=== PATIENT | female | born 1970 | race Hispanic/Latino ===

== ENCOUNTER 2025-02-08 11:15 | Emergency (ER) | payer SELFPAY ==
[~2025-02-08] VITALS: Ht 152.4 cm; Wt 61.7 kg
[2025-02-08 11:43] LABS: BASOPHILS # (AUTO) 0.08 K/uL (0.00-0.20); BASOPHILS % (AUTO) 0.6 % (0.0-5.0); EOSINOPHILS % (AUTO) 0.8 % (0.0-8.0); HEMATOCRIT 44.3 % (36-48); IMMATURE GRANULOCYTE ABSOLUTE 0.19 K/uL (0-1); LYMPHOCYTES # (AUTO) 2.4 K/uL (1.0-4.8); LYMPHOCYTES % (AUTO) 18.8 % (21.0-51.0); MEAN CORPUSCULAR HEMOGLOBIN 29.6 pg (27.0-33.0); MEAN CORPUSCULAR HGB CONC 32.3 g/dL (32.0-36.0); MEAN CORPUSCULAR VOLUME 91.7 fL (79-99); MONOCYTES # (AUTO) 0.4 K/uL (0.1-1.0); MONOCYTES % (AUTO) 3.3 % (3.0-13.0); NEUTROPHILS # (AUTO) 9.6 K/uL (1.8-7.7); PLATELET COUNT (AUTO) 234 K/uL (130-400); RED BLOOD CELL COUNT(AUTO) 4.83 MIL/uL (4.00-5.50); RED CELL DISTRIBUTION WIDTH 13.6 % (11.0-15.5); WHITE BLOOD COUNT (AUTO) 12.8 K/uL (4.8-10.8)
[2025-02-08 11:54] LABS: CREATININE 0.7 mg/dL (0.5-1.0); POTASSIUM 4.2 mmol/L (3.5-5.1)
[2025-02-08] MEDS ORDERED: IOHEXOL 350 MG/ML 100ML INFUS..BTL IV ONE (12:10)
--- NOTE | 2025-02-08 12:16 | HMCIMG ---
ANKLE COMP 3VWS RT HISTORY: Status post fall COMPARISON: None TECHNIQUE: 3 images of the right ankle were obtained. FINDINGS: There is no acute displaced fracture or dislocation. Degenerative changes are seen. IMPRESSION: 1. Findings as described above.
--- NOTE | 2025-02-08 12:17 | HMCIMG ---
FOREARM 2VWS RT HISTORY: Status post fall COMPARISON: None TECHNIQUE: 2 images of the right forearm are obtained. FINDINGS: There is no acute displaced fracture or dislocation. Degenerative changes are seen. IMPRESSION: 1. Findings as described above.
[2025-02-08] MEDS ORDERED: traMADol HCL 50 MG TABLET PO ONE (12:30)
--- NOTE | 2025-02-08 12:33 | HMCIMG ---
HUMERUS 2+VWS RT HISTORY: Status post fall COMPARISON: None TECHNIQUE: 2 images of the right humerus were obtained. FINDINGS: There is no acute displaced fracture or dislocation. Degenerative changes are seen. IMPRESSION: 1. Findings as described above.
--- NOTE | 2025-02-08 12:41 | HMCIMG ---
CT CHEST/ABD/PELV W/CONRAST HISTORY: Status post fall COMPARISON: None TECHNIQUE: Multiple sequential axial images of the chest were obtained from the thoracic inlet through upper abdomen. Patient was not given contrast through intravenous route. FINDINGS: There are right posterior lateral rib fractures involving eighth through 12th ribs. Small right pleural effusion is seen consistent with hemothorax. There is subtle hypodensity noted in the right hepatic lobe adjacent to the fracture site with surrounding increased enhancement suggestive of grade 1 liver laceration. There is no evidence of pulmonary nodule or parenchymal disease. No pleural effusion or pericardial effusion is seen. There is no evidence of pneumothorax. There are normal size mediastinal and hilar lymph nodes. The heart is not enlarged. Degenerative changes of the thoracolumbar spine are present. There is no evidence of adrenal nodule. IMPRESSION: 1. There are right posterior lateral rib fractures involving eighth through 12th ribs. Small right pleural effusion is seen consistent with hemothorax. There is subtle hypodensity noted in the right hepatic lobe adjacent to the fracture site with surrounding increased enhancement suggestive of grade [address] CHEST/ABD/PELV W/CONRAST HISTORY: No additional history given. COMPARISON: None TECHNIQUE: Multiple sequential axial images of the abdomen and pelvis were obtained from the dome of the diaphragm through symphysis pubis. Patient was not given contrast through intravenous route. Oral contrast was not given. FINDINGS: There are right posterior lateral rib fractures involving eighth through 12th ribs. Small right pleural effusion is seen consistent with hemothorax. There is subtle hypodensity noted in the right hepatic lobe adjacent to the fracture site with surrounding increased enhancement suggestive of grade 1 liver laceration. Adjacent soft tissue swelling and soft tissue emphysema There are right L3 and L4 transverse processes are fractured with mild adjacent soft tissue swelling. There is cystic mass in the right adnexa measuring 6 x 5.8 cm may be related to ovarian cyst versus cystic neoplasm not excluded. Spleen, adrenal glands and pancreas are unremarkable. There is no evidence of hydronephrosis bilaterally. No evidence of renal stone is seen. Fecal material is seen in the colon. There are normal size retroperitoneal and mesenteric lymph nodes. No ascites is seen. Atherosclerotic changes are present. Pelvic sidewalls are symmetric bilaterally. Bladder is well distended without wall thickening. IMPRESSION: 1. There are right posterior lateral rib fractures involving eighth through 12th ribs. Small right pleural effusion is seen consistent with hemothorax. There is subtle hypodensity noted in the right hepatic lobe adjacent to the fracture site with surrounding increased enhancement suggestive of grade 1 liver laceration. Adjacent soft tissue swelling and soft tissue emphysema There are right L3 and L4 transverse processes are fractured with mild adjacent soft tissue swelling. There is cystic mass in the right adnexa measuring 6 x 5.8 cm may be related to ovarian cyst versus cystic neoplasm not excluded. Report was given to the emergency physician. CT was performed with one or more following dose reduction techniques: automated exposure control, adjustment of the mA and kv according to patient's size, or use of a iterative reconstruction technique.
[2025-02-08] MEDS: ondanSETRON 4MG INJ IVP ONE (12:44)
[2025-02-08] MEDS: morPHINE 4 MG SYG IVP ONE (12:44)
--- NOTE | 2025-02-08 12:48 | NUR ---
REFER TO TRAUMA FLOW SHEET. KIMBERLY CHANGED TO KIMBERLY 2 AND TRAUMA LEVEL 1
--- NOTE | 2025-02-08 13:00 | NUR ---
RE[place] G[place] [facility] [place] EMS LEAVING TO [facility]
--- NOTE | 2025-02-08 13:05 | NUR ---
[facility] EMS TRANSFER SPIKE FROM [facility] CALLED FOR EMERGENT [place] [facility] [place] LEVEL 1. INFORMATION PROVIDED.
[2025-02-08] MEDS: hydroMORPHone 0.5 MG SYG (0.5MG/0.5ML) IVP ONE (13:09)
[2025-02-08] MEDS: hydroMORPHone 0.5 MG SYG (0.5MG/0.5ML) ONE (13:10)
--- NOTE | 2025-02-08 13:15 | ERN ---
General Chief Complaint: Mechanical Fall Stated Complaint: FALL Time Seen by MD: 11:17 Source: patient, family History of Present Illness Initial Comments Patient is a 55-year-old female coming in after she fell off a ladder. Per patient she was complaining of pain in multiple regions of her body. She states that she has pain in her right chest right abdominal region as well as right ankle right elbow and right shoulder region. Patient does quantifies the height at greater than 5 ft. No loss of consciousness. Allergies: Coded Allergies: No Known Allergies (Unverified Allergy, Unknown, 02/08/25) Past Medical History Past Medical History: No Pertinent History Past Surgical History: Other ROS Dictation CONSTITUTIONAL: No chills, no fever, no weakness, no diaphoresis, no malaise. HEAD/FACE: No signs of trauma. EENT: No eye pain, no blurred vision, no tearing, no double vision, no ear pain, no ear discharge, no nose pain, no nasal congestion, no throat pain, no throat swelling, no mouth pain. RESPIRATORY: No cough, no orthopnea, no SOB, no stridor, no wheezing. CARDIOVASCULAR: No chest pain, no edema, no palpitations, no syncope. GASTROINTESTINAL/ABDOMINAL: No abdominal pain, no constipation, no diarrhea, no nausea, no vomiting. GENITOURINARY: No abnormal discharge, no dysuria, no frequent urination, no hematuria. No complaints of pain in the genitals. MUSCULOSKELETAL: back pain, no gout, joint pain, joint swelling, muscle pain, no muscle stiffness, no neck pain. INTEGUMENTARY: No change in color, no change in hair/nails, no dryness, no lesion, no lumps, no rash. NEUROLOGICAL/PSYCH: No anxiety, not depressed, no emotional problem, no headache, no numbness, no pre-existing deficit, no history of seizures, no tremors, no weakness. HEMATOLOGIC/LYMPHATIC: Not anemic, no history of blood clots, no apparent bleeding, no bruising, glands not swollen. All Systems Negative, Except as Noted. Physical Exam Physical Exam Dictation VITAL SIGNS: Reviewed. GENERAL APPEARANCE: Alert, oriented x3, no acute distress, obese. HEAD AND FACE: Non-traumatic. EYES: PERRL, pink conjunctivas, eyelid no trauma, anterior chamber clear. EARS: Pinnas intact and no signs of trauma or erythema. Ear canals clear and no discharge. TMs no erythema. NOSE: No discharge, no bleeding. OROPHARYNX: Mouth normal, teeth no caries, tongue pink. Pharynx clear, no erythema. Tonsils no exudates, no abscesses noted. Mucous membrane moist. NECK: Supple, non-tender, no thyromegaly, no masses, no JVD, no bruits. BREAST: Deferred. CHEST: Right posterior chest pain on palpation tenderness, no crepitus, no paradoxical movement, no retractions. LUNGS: Clear, well-ventilated, symmetric, no rales, no wheezing, no rhonchi, no stridor, good breath sounds bilaterally. HEART: Regular rate, regular rhythm, no murmur, no gallops. VASCULAR: No peripheral edema. ABDOMEN: Soft, positive bowel sounds, nondistended, no guarding, nontender, no rebound, no masses no hepatomegaly, no splenomegaly, no Viera's sign, no her nias. RECTAL: Deferred. GENITAL: Deferred. NEUROLOGICAL: Normal speech, gross motor function intact, gross sensory function intact. MUSCULOSKELETAL: Neck nontender, full range of motion, back nontender, full range of motion. EXTREMITIES: Nontender, full range of motion. Right ankle pain swelling tenderness to palpation, right forearm right shoulder pain as well tenderness to palpation flexion and extension, SKIN: Color pink, dry, no turgor, no rash, no lacerations, no abrasions, no contusions. LYMPHATICS: Deferred. Results Laboratory and Microbiology Lab and Micro Result Laboratory Tests Test 02/08/25 11:34 White Blood Count 12.8 K/uL (4.8-10.8) H Red Blood Count 4.83 MIL/uL (4.00-5.50) Hemoglobin 14.3 g/dL (12.0-16.0) Hematocrit 44.3 % (36-48) Mean Corpuscular Volume 91.7 fL (79-99) Mean Corpuscular Hemoglobin 29.6 pg (27.0-33.0) Mean Corpuscular Hemoglobin Concent 32.3 g/dL (32.0-36.0) Red Cell Distribution Width 13.6 % (11.0-15.5) Platelet Count 234 K/uL (130-400) Mean Platelet Volume 10.5 fL (7.5-10.5) Immature Granulocyte % (Auto) 1.5 % (0-1) H Neutrophils (%) (Auto) 75.0 % (40.0-77.0) Lymphocytes (%) (Auto) 18.8 % (21.0-51.0) L Monocytes (%) (Auto) 3.3 % (3.0-13.0) Eosinophils (%) (Auto) 0.8 % (0.0-8.0) Basophils (%) (Auto) 0.6 % (0.0-5.0) Neutrophils # (Auto) 9.6 K/uL (1.8-7.7) H Lymphocytes # (Auto) 2.4 K/uL (1.0-4.8) Monocytes # (Auto) 0.4 K/uL (0.1-1.0) Eosinophils # (Auto) 0.10 K/uL (0.00-0.70) Basophils # (Auto) 0.08 K/uL (0.00-0.20) Absolute Immature Granulocyte (auto 0.19 K/uL (0-1) Nucleated Red Blood Cells 0.0 % (0.0-0.19) Sodium Level 146 mmol/L (136-145) H Potassium Level 4.2 mmol/L (3.5-5.1) Chloride Level 106 mmol/L (101-111) Carbon Dioxide Level 33 mmol/L (21-32) H Blood Urea Nitrogen 26 mg/dL (7-18) H Creatinine 0.7 mg/dL (0.5-1.0) Glomerular Filtration Rate Calc 102 mL/min (>90) Random Glucose 141 mg/dL (70-105) H Total Calcium 9.3 mg/dL (8.5-10.1) Troponin I High Sensitivity < 4 ng/L (4-50) L Serum Test, Qualitative NEGATIVE (NEGATIVE) Labs Reviewed?: Yes EKG/XRAY/US/CT/MRI EKG Comment 02/08/2025 time 12:51 p.m. Ventricular rate 79 Sinus rhythm [place] [address] wave elevation or depression X-RAY Comment [place] [address] [place] [id number] IMAGING REPORT Signed PATIENT: GRETA FULLER MR#: [id number] : 1970 SEX: F AGE: 55 LOCATION: [facility] ORDER 1130 STATUS: REG ER REPORT#: [id number] SERVICE 112 REASON: fall ORDERING PHYSICIAN: DILAN BURNETTE MD PROCEDURE: HUM 2V RT - HUMERUS 2+VWS RT HUMERUS 2+VWS RT HISTORY: Status post fall COMPARISON: None TECHNIQUE: 2 images of the right humerus were obtained. FINDINGS: There is no acute displaced fracture or dislocation. Degenerative changes are seen. IMPRESSION: 1. Findings as described above. DICTATED BY: ARBEN BLANDON MD DATE: 02/08/25 1225 ELECTRONICALLY SIGNED BY: ARBEN BLANDON MD DATE: 02/08/25 1233 [place] [address] [address] [id number] IMAGING REPORT Signed PATIENT: GRETA FULLER MR#: [id number] : 1970 SEX: F AGE: 55 LOCATION: [facility] ORDER 1130 STATUS: REG ER REPORT#: [id number] SERVICE 1129 REASON: fall ORDERING PHYSICIAN: DILAN BURNETTE MD PROCEDURE: FORARMR - FOREARM 2VWS RT FOREARM 2VWS RT HISTORY: Status post fall COMPARISON: None TECHNIQUE: 2 images of the right forearm are obtained. FINDINGS: There is no acute displaced fracture or dislocation. Degenerative changes are seen. IMPRESSION: 1. Findings as described above. DICTATED BY: ARBEN BLANDON MD DATE: 02/08/25 1213 ELECTRONICALLY SIGNED BY: ARBEN BLANDON MD DATE: 02/08/25 1217 [facility] [id number] IMAGING REPORT Signed PATIENT: GRETA FULLER MR#: [id number] : 1970 SEX: F AGE: 55 LOCATION: [facility] ORDER 1130 STATUS: REG ER HOSPITAL REPORT#: [id number] SERVICE REASON: fall ORDERING PHYSICIAN: DILAN BURNETTE MD PROCEDURE: [id number] - ANKLE COMP 3VWS RT ANKLE COMP 3VWS RT HISTORY: Status post fall COMPARISON: None TECHNIQUE: 3 images of the right ankle were obtained. FINDINGS: There is no acute displaced fracture or dislocation. Degenerative changes are seen. IMPRESSION: 1. Findings as described above. DICTATED BY: ARBEN BLANDON MD DATE: 02/08/251211 ELECTRONICALLY SIGNED BY: ARBEN BLANDON MD DATE: 02/08/251215 CT Scan Comment [address] [id number] IMAGING REPORT Signed PATIENT: GRETA FULLER MR#: [id number] : 1970 SEX: F AGE: 55 LOCATION: [facility] ORDER 1130 STATUS: REG ER REPORT#: [id number] SERVICE 112 REASON: fall ORDERING PHYSICIAN: DILAN BURNETTE MD PROCEDURE: CAP W - CT CHEST/ABD/PELV W/CONRAST CT CHEST/ABD/PELV W/CONRAST HISTORY: Status post fall COMPARISON: None TECHNIQUE: Multiple sequential axial images of the chest were obtained from the thoracic inlet through upper abdomen. Patient was not given contrast through intravenous route. FINDINGS: There are right posterior lateral rib fractures involving eighth through 12th ribs. Small right pleural effusion is seen consistent with hemothorax. There is subtle hypodensity noted in the right hepatic lobe adjacent to the fracture site with surrounding increased enhancement suggestive of grade 1 liver laceration. There is no evidence of pulmonary nodule or parenchymal disease. No pleural effusion or pericardial effusion is seen. There is no evidence of pneumothorax. There are normal size mediastinal and hilar lymph nodes. The heart is not enlarged. Degenerative changes of the thoracolumbar spine are present. There is no evidence of adrenal nodule. IMPRESSION: 1. There are right posterior lateral rib fractures involving eighth through 12th ribs. Small right pleural effusion is seen consistent with hemothorax. There is subtle hypodensity noted in the right hepatic lobe adjacent to the fracture site with surrounding increased enhancement suggestive of grade [address] CHEST/ABD/PELV W/CONRAST HISTORY: No additional history given. COMPARISON: None TECHNIQUE: Multiple sequential axial images of the abdomen and pelvis were obtained from the dome of the diaphragm through symphysis pubis. Patient was not given contrast through intravenous route. Oral contrast was not given. FINDINGS: There are right posterior lateral rib fractures involving eighth through 12th ribs. Small right pleural effusion is seen consistent with hemothorax. There is subtle hypodensity noted in the right hepatic lobe adjacent to the fracture site with surrounding increased enhancement suggestive of grade 1 liver laceration. Adjacent soft tissue swelling and soft tissue emphysema There are right L3 and L4 transverse processes are fractured with mild adjacent soft tissue swelling. There is cystic mass in the right adnexa measuring 6 x 5.8 cm may be related to ovarian cyst versus cystic neoplasm not excluded. Spleen, adrenal glands and pancreas are unremarkable. There is no evidence of hydronephrosis bilaterally. No evidence of renal stone is seen. Fecal material is seen in the colon. There are normal size retroperitoneal and mesenteric lymph nodes. No ascites is seen. Atherosclerotic changes are present. Pelvic sidewalls are symmetric bilaterally. Bladder is well distended without wall thickening. IMPRESSION: 1. There are right posterior lateral rib fractures involving eighth through 12th ribs. Small right pleural effusion is seen consistent with hemothorax. There is subtle hypodensity noted in the right hepatic lobe adjacent to the fracture site with surrounding increased enhancement suggestive of grade 1 liver laceration. Adjacent soft tissue swelling and soft tissue emphysema There are right L3 and L4 transverse processes are fractured with mild adjacent soft tissue swelling. There is cystic mass in the right adnexa measuring 6 x 5.8 cm may be related to ovarian cyst versus cystic neoplasm not excluded. Report was given to the emergency physician. CT was performed with one or more following dose reduction techniques: automated exposure control, adjustment of the mA and kv according to patient's size, or use of a iterative reconstruction technique. DICTATED BY: ARBEN BLANDON MD DATE: 02/08/25 123 ELECTRONICALLY SIGNED BY: ARBEN BLANDON MD DATE: 02/08/25 124 [facility] MDM: Differential diagnosis: Traumatic fall, eight through 12 rib fracture, liver laceration grade 1, mild hemothorax, L3-L4 transverse fractures, Rationale: Tests considered and ordered secondary to shared decision making include: labs, ECG and radiology Previous outside records reviewed: Old ER visits. Risk of complication and/or morbidity or mortality of patient management: None Medications-Per medication reconciliation Need for hospitalization: Patient does meet criteria for hospitalization. Need for emergency major/minor surgery: No There are no social concerns with this patient. Prescription drug management Prescriptions will include symptomatic care Patient's prior external medical records from other ER visits were reviewed by me as indicated. Prior testing and results from previous visits were reviewed. Prior tests were taken into account with medical decision making and resource utilization, independent historian/historians were used to obtain complete medic al history. I independently interpreted the test that were performed, results were reviewed by me and considered findings on radiology if ordered. Medical management and examination interpretation discussions were had by me with other qualified healthcare professionals as indicated for the patient's care. Patient will be transferred to [facility]. Accepting physician trauma surgeon Dr. Turcios, ER MD Dr. Aguirre. ED Course Orders Procedure Category Date Status Time Cbc With Differential LAB 02/08/25 Complete 11:29 Basic Metabolic Panel LAB 02/08/25 Complete 11:29 Troponin I High LAB 02/08/25 Complete Sensitivity 11:29 Ct Chest/Abd/Pelv CT 02/08/25 Resulted W/Conrast 11:29 Humerus 2+Vws Rt RAD 02/08/25 Resulted 11:29 Forearm 2vws Rt RAD 02/08/25 Resulted 11:29 Ankle Comp 3vws Rt RAD 02/08/25 Resulted 11:29 Testing, LAB 02/08/25 Complete Serum Hcg 11:33 Iohexol (Omnipaque) PHA 02/08/25 Complete 12:10 Ondansetron 4mg Inj PHA 02/08/25 Complete (Zofran 4mg Inj) 12:30 Morphine 4mg Syg PHA 02/08/25 Complete (Morphine 4mg Syg) 12:30 Current Medications Medications (Trade) Dose Ordered Sig/Alfonzo Route PRN Reason Start Time Stop Time Status Last Admin Dose Admin Iohexol (Omnipaque) 35,000 mg STK-MED ONCE IV 02/08/25 12:10 02/08/25 12:10 DC Morphine Sulfate (morPHINE 4MG SYG) 4 mg ONCE ONCE IVP 02/08/25 12:30 02/08/25 12:31 DC 02/08/25 12:44 Ondansetron HCl (zoFRAN 4MG INJ) 4 mg ONCE ONCE IVP 02/08/25 12:30 02/08/25 12:31 DC 02/08/25 12:44 Tramadol HCl (UltRAM) 50 mg ONCE ONCE PO 02/08/25 12:30 02/08/25 12:42 DC Vital Signs Date Time Temp Pulse Resp B/P (MAP) Pulse Ox O2 Delivery O2 Flow Rate FiO2 02/08/25 11:28 98.1 73 20 120/68 99 Room Air* 0 21 02/08/25 11:16 98.1 73 20 120/68 99 Room Air Critical Care Note Comments Critical Care Procedure Note Authorized and Performed by: me Total critical care time: Approximately 36 minutes Due to a high probability of clinically significant, life threatening deterioration, the patient required my highest level of preparedness to i ntervene emergently and I personally spent this critical care time directly and personally managing the patient. This critical care time included obtaining a history; examining the patient; pulse oximetry; ordering and review of studies; arranging urgent treatment with development of a management plan; evaluation of patient's response to treatment; frequent reassessment; and, discussions with other providers. This critical care time was performed to assess and manage the high probability of imminent, life-threatening deterioration that could result in multi-organ failure. It was exclusive of separately billable procedures and treating other patients and teaching time. Please see MDM section and the rest of the note for further information on patient assessment and treatment. DX & DISP Disposition: Transfer Decision to Admit Time: 13:14 Departure Impression: Primary Impression: Multiple rib fractures Additional Impressions: Liver laceration, grade I, Hemothorax, Lumbar transverse process fracture Condition: Stable Referrals: SELF,REFERRAL (PCP) DILAN BURNETTE MD Feb 08, 2025 13:15
--- NOTE | 2025-02-08 13:20 | NUR ---
[facility] BY TO PICK PT UP.
[2025-02-08 13:26] VITALS: BP 123/66; PULSE 73; RESP 20; TEMP 98; O2SAT 99
--- NOTE | 2025-02-08 13:39 | HP ---
Mechanism of Injury Scene LOC: Negative Fall: Fall(feet): (5-6) Allergies Allergies: Coded Allergies: No Known Allergies (Unverified Allergy, Unknown, 02/08/25) Social History Social History: None Neurological Exam Bilateral Upper Ext. Strength: Equal Bilateral Lower Ext. Strength: Equal Bilateral Upper Ext. Sensation: Normal Bilateral Lower Ext. Sensation: Normal [place] Coma Scale [place] Coma Scale (GCS): Jessica Coma Scale (GCS) Response (Comments) Value Eye Opening Spontaneous 4 Motor Response Obeys 6 Verbal Response Oriented 5 Total 15 Head Head: Atraumatic Trauma Eyes: Pupils (ERRLA) Trauma Nose: Nares, Patent Trauma Scalp: Intact Neck Neck: No Cervical Tenderness Trachea: Midline Chest Chest: Symmetrical [place]ion Abdomen Abdomen: Soft, Non-tender Extremities Extremities: Normal Back Back: Tenderness (lumbar spine) Results Labs: Laboratory Tests Test 02/08/25 11:34 Range/Units White Blood Count 12.8 H 4.8-10.8 K/uL Red Blood Count 4.83 4.00-5.50 MIL/uL Hemoglobin 14.3 12.0-16.0 g/dL Hematocrit 44.3 36-48 % Mean Corpuscular Volume 91.7 79-99 fL Mean Corpuscular Hemoglobin 29.6 27.0-33.0 pg Mean Corpuscular Hemoglobin Concent 32.3 32.0-36.0 g/dL Red Cell Distribution Width 13.6 11.0-15.5 % Platelet Count 234 130-400 K/uL Mean Platelet Volume 10.5 7.5-10.5 fL Immature Granulocyte % (Auto) 1.5 H 0-1 % Neutrophils (%) (Auto) 75.0 40.0-77.0 % Lymphocytes (%) (Auto) 18.8 L 21.0-51.0 % Monocytes (%) (Auto) 3.3 3.0-13.0 % Eosinophils (%) (Auto) 0.8 0.0-8.0 % Basophils (%) (Auto) 0.6 0.0-5.0 % Neutrophils # (Auto) 9.6 H 1.8-7.7 K/uL Lymphocytes # (Auto) 2.4 1.0-4.8 K/uL Monocytes # (Auto) 0.4 0.1-1.0 K/uL Eosinophils # (Auto) 0.10 0.00-0.70 K/uL Basophils # (Auto) 0.08 0.00-0.20 K/uL Absolute Immature Granulocyte (auto 0.19 0-1 K/uL Nucleated Red Blood Cells 0.0 0.0-0.19 % Sodium Level 146 H 136-145 mmol/L Potassium Level 4.2 3.5-5.1 mmol/L Chloride Level 106 101-111 mmol/L Carbon Dioxide Level 33 H 21-32 mmol/L Blood Urea Nitrogen 26 H 7-18 mg/dL Creatinine 0.7 0.5-1.0 mg/dL Glomerular Filtration Rate Calc 102 >90 mL/min Random Glucose 141 H 70-105 mg/dL Total Calcium 9.3 8.5-10.1 mg/dL Troponin I High Sensitivity < 4 L 4-50 ng/L Serum Test, Qualitative NEGATIVE NEGATIVE Radiology Imaging: PATIENT: GRETA FULLER MR#: [id number] : 1970 SEX: F AGE: 55 LOCATION: [facility] ORDER STATUS: [facility] REPORT#: [id number] SERVICE 112 REASON: fall ORDERING PHYSICIAN: DILAN BURNETTE MD PROCEDURE: HUM 2V RT - HUMERUS 2+VWS RT HUMERUS 2+VWS RT HISTORY: Status post fall COMPARISON: None TECHNIQUE: 2 images of the right humerus were obtained. FINDINGS: There is no acute displaced fracture or dislocation. Degenerative changes are seen. IMPRESSION: 1. Findings as described above. DICTATED BY: ARBEN BLANDON MD DATE: 02/08/251224 ELECTRONICALLY SIGNED BY: ARBEN BLANDON MD DATE: 02/08/25 1233 PATIENT: GRETA FULLER MR#: [id number] : 1970 SEX: F AGE: 55 LOCATION: [facility] ORDER 1130 STATUS: [facility] REPORT#: [id number] SERVICE 1129 REASON: fall ORDERING PHYSICIAN: DILAN BURNETTE MD PROCEDURE: FORARMR - FOREARM 2VWS RT FOREARM 2VWS RT HISTORY: Status post fall COMPARISON: None TECHNIQUE: 2 images of the right forearm are obtained. FINDINGS: There is no acute displaced fracture or dislocation. Degenerative changes are seen. IMPRESSION: 1. Findings as described above. DICTATED BY: ARBEN BLANDON MD DATE: 02/08/251212 ELECTRONICALLY SIGNED BY: ARBEN BLANDON MD DATE: 02/08/251216 PATIENT: GRETA FULLER MR#: [id number] : 1970 SEX: F AGE: 55 LOCATION: [facility] ORDER 1130 STATUS: [facility] REPORT#: [id number] SERVICE 112 REASON: fall ORDERING PHYSICIAN: DILAN BURNETTE MD PROCEDURE: CAP W - CT CHEST/ABD/PELV W/CONRAST CT CHEST/ABD/PELV W/CONRAST HISTORY: Status post fall COMPARISON: None TECHNIQUE: Multiple sequential axial images of the chest were obtained from the thoracic inlet through upper abdomen. Patient was not given contrast through intravenous route. FINDINGS: There are right posterior lateral rib fractures involving eighth through 12th ribs. Small right pleural effusion is seen consistent with hemothorax. There is subtle hypodensity noted in the right hepatic lobe adjacent to the fracture site with surrounding increased enhancement suggestive of grade 1 liver laceration. There is no evidence of pulmonary nodule or parenchymal disease. No pleural effusion or pericardial effusion is seen. There is no evidence of pneumothorax. There are normal size mediastinal and hilar lymph nodes. The heart is not enlarged. Degenerative changes of the thoracolumbar spine are present. There is no evidence of adrenal nodule. IMPRESSION: 1. There are right posterior lateral rib fractures involving eighth through 12th ribs. Small right pleural effusion is seen consistent with hemothorax. There is subtle hypodensity noted in the right hepatic lobe adjacent to the fracture site with surrounding increased enhancement suggestive of grade [address] CHEST/ABD/PELV W/CONRAST HISTORY: No additional history given. COMPARISON: None TECHNIQUE: Multiple sequential axial images of the abdomen and pelvis were obtained from the dome of the diaphragm through symphysis pubis. Patient was not given contrast through intravenous route. Oral contrast was not given. FINDINGS: There are right posterior lateral rib fractures involving eighth through 12th ribs. Small right pleural effusion is seen consistent with hemothorax. There is subtle hypodensity noted in the right hepatic lobe adjacent to the fracture site with surrounding increased enhancement suggestive of grade 1 liver laceration. Adjacent soft tissue swelling and soft tissue emphysema There are right L3 and L4 transverse processes are fractured with mild adjacent soft tissue swelling. There is cystic mass in the right adnexa measuring 6 x 5.8 cm may be related to ovarian cyst versus cystic neoplasm not excluded. Spleen, adrenal glands and pancreas are unremarkable. There is no evidence of hydronephrosis bilaterally. No evidence of renal stone is seen. Fecal material is seen in the colon. There are normal size retroperitoneal and mesenteric lymph nodes. No ascites is seen. Atherosclerotic changes are present. Pelvic sidewalls are symmetric bilaterally. Bladder is well distended without wall thickening. IMPRESSION: 1. There are right posterior lateral rib fractures involving eighth through 12th ribs. Small right pleural effusion is seen consistent with hemothorax. There is subtle hypodensity noted in the right hepatic lobe adjacent to the fracture site with surrounding increased enhancement suggestive of grade 1 liver laceration. Adjacent soft tissue swelling and soft tissue emphysema There are right L3 and L4 transverse processes are fractured with mild adjacent soft tissue swelling. There is cystic mass in the right adnexa measuring 6 x 5.8 cm may be related to ovarian cyst versus cystic neoplasm not excluded. Report was given to the emergency physician. CT was performed with one or more following dose reduction techniques: automated exposure control, adjustment of the mA and kv according to patient's size, or use of a iterative reconstruction technique. DICTATED BY: ARBEN BLANDON MD DATE: 02/08/25 1231 ELECTRONICALLY SIGNED BY: ARBEN BLANDON MD DATE: 02/08/25 1241 PATIENT: GRETA FULLER MR#: [id number] : 1970 SEX: F AGE: 55 LOCATION: [facility] ORDER 1130 STATUS: [facility] REPORT#: [id number] SERVICE 1129 REASON: fall ORDERING PHYSICIAN: DILAN BURNETTE MD PROCEDURE: [id number] - ANKLE COMP 3VWS RT ANKLE COMP 3VWS RT HISTORY: Status post fall COMPARISON: None TECHNIQUE: 3 images of the right ankle were obtained. FINDINGS: There is no acute displaced fracture or dislocation. Degenerative changes are seen. IMPRESSION: 1. Findings as described above. DICTATED BY: ARBEN BLANDON MD DATE: 02/08/251211 ELECTRONICALLY SIGNED BY: ARBEN BLANDON MD DATE: 02/08/251215 Injuries Injury List: right 8-12 rib fractures trace right hemothorax grade 1 liver laceration right L3 and L4 transverse process fractures Plan Discussed With: Consults: This is a 55 year old female s/p fall from ladder at about 5 feet. She has multiple right sided rib fractures with trace associated hemothorax, grade I liver laceration, right sided transverse process fracture of L3-L4. Patient will be transferred due to lack of neurosurgery consult for spinal fracture. Patient is stable for transfer. Admit to: Admit to: transfer AZALEA DC DO Feb 08, 2025 13:39
== END 2025-02-08 13:35 ==
LOC: EDH 11:15
DX: S22.41XA Multiple fractures of ribs, right side, initial encounter for closed fracture (principal); S36.114A Minor laceration of liver, initial encounter; S32.038A Other fracture of third lumbar vertebra, initial encounter for closed fracture; S32.048A Other fracture of fourth lumbar vertebra, initial encounter for closed fracture; S27.1XXA Traumatic hemothorax, initial encounter; W11.XXXA Fall on and from ladder, initial encounter; Y93.89 Activity, other specified; Y92.89 Other specified places as the place of occurrence of the external cause; Y99.8 Other external cause status
CPT/HCPCS: 99291; 71260; 96374; 96375; 84484; 80048; 84703; 85025; 36415; 73610; 73090; 73060; 74177; J1171; J2405; J2270; Q9967